=== PATIENT | male | born 1990 | race African-American/Black ===

== ENCOUNTER 2017-08-14 17:49 | Emergency (ER) | payer BC ==
[2017-08-14 18:04] VITALS: BP 139/94; PULSE 93; TEMP 98.7; BMI 30.3
[2017-08-14] MEDS ORDERED: SODIUM CHLORIDE 1,000 ML IV STA (18:15)
[2017-08-14] MEDS ORDERED: MAG HYDROX/AL HYDROX/SIMETH 30 ML UNIT-DOSE CUP PO ONE (18:15)
[2017-08-14] MEDS ORDERED: FAMOTIDINE 20 MG/50 ML IVPB 20 MG/50 ML MG IVPB ONE ×2 (18:15→18:20)
[2017-08-14] MEDS ORDERED: ONDANSETRON 4 MG/2 ML VIAL IVPUSH ONE (18:15)
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
--- NOTE | 2017-08-14 18:32 | PDOC ---
Attending Attestation - Resident Resident Name: Mikey Joe - ED Attending Attestation I have performed the following: I have examined & evaluated the patient, The case was reviewed & discussed with the resident, I agree w/resident's findings & plan, Exceptions are as noted - HPI HPI: 08/14/17 18:27 26-year-old male with past medical history of gastritis and alcohol abuse presents with left upper quadrant pain for several months. Patient reports that several months ago he had an endoscopy which demonstrated gastritis. He drinks liquor every day. He has not intoxicated now. States that the past 3 to symptoms are worsening but he has not been on any medications. He is recently moved [facility] [place] [facility]. Denies fevers or chills. States that occasionally the pain makes him feel dizzy but denies any chest pain or shortness of breath. Denies fevers or chills. - Physicial Exam PE: 08/14/17 18:32 GENERAL: Awake, alert, and fully oriented, in no acute distress. HEAD: No signs of trauma EYES: PERRLA, EOMI, sclera anicteric, conjunctiva clear ENT: Auricles normal inspection, hearing grossly normal, nares patent NECK: Normal ROM, supple LUNGS: Breath sounds equal, clear to auscultation bilaterally. No wheezes, and no crackles HEART: Regular rate and rhythm, normal S1 and S2, no murmurs, rubs or gallops ABDOMEN: +TTP LUQ. negative squires sign. Soft. No guarding, no rebound. No masses EXTREMITIES: Normal range of motion, no edema. No clubbing or cyanosis. No cords, erythema, or tenderness NEUROLOGICAL: Cranial nerves II through XII grossly intact. Normal speech, normal gait SKIN: Warm, Dry, normal turgor, no rashes or lesions noted. - Medical Decision Making 08/14/17 18:33 Vital Signs Temp Pulse Resp BP Pulse Ox 98.7 F 93 H 18 139/94 95 08/14/17 18:00 08/14/17 18:00 18 18:00 08/14/17 18:00 08/14/17 18:00 I suspect that this is likely alcohol gastritis. Pt advised on alcohol detox and will be given for 2 park care. Will obtain labs to r/o abdominal pathology such as pancreatitis. Labs, protonix, GERD medications. If workup unremarkable, will d/c with prescription of protonix and follow up with GI. Heart Score/ECG Review #1 ECG reviewed & interpreted by me at: 18:00 08/14/17 18:31 NSR 86, LVH, no std/concetta, TWI III, V3, QTC 397 msec
[2017-08-14 18:34] LABS: BASO % 0.7 % (0-2.0); EOS % 1.6 % (0-4.5); HEMATOCRIT 48.8 % (35.4-49); HEMOGLOBIN 16.9 GM/dL (11.7-16.9); LYMPH % 20.3 % (8-40); MCH 31.2 pg (25.7-33.7); MCHC 34.6 g/dl (32.0-35.9); MEAN PLT VOLUME 8.3 fl (7.5-11.1); MONO % 9.6 % (3.8-10.2); NEUT % 67.8 % (42.8-82.8); PLATELET COUNT 212 K/MM3 (134-434); RBC 5.43 M/mm3 (4.00-5.60); RDW 13.2 % (11.9-15.9); WHITE BLOOD COUNT 7.1 K/mm3 (4.0-10.0)
[2017-08-14 18:53] LABS: INR 1.04 (0.82-1.09); PROTHROMBIN TIME (PATIENT) 11.7 SEC (9.98-11.88)
[2017-08-14 19:06] LABS: ALBUMIN 4.3 g/dl (3.4-5.0); ANION GAP 5 (8-16); BILIRUBIN,TOTAL 0.7 mg/dL (0.2-1.0); BLOOD UREA NITROGEN 17 mg/dL (7-18); CALCIUM 9.4 mg/dL (8.5-10.1); CHLORIDE 104 mmol/L (98-107); CO2 29 mmol/L (21-32); CREATININE 1.2 mg/dL (0.7-1.3); GLUCOSE,RANDOM 88 mg/dL (74-106); LIPASE 142 U/L (73-393); MAGNESIUM 2.1 mg/dL (1.8-2.4); SGPT/ALT 47 U/L (12-78); SODIUM 138 mmol/L (136-145); TOT PROT 8.2 g/dl (6.4-8.2)
[2017-08-14 19:14] LABS: ALK PHOS 105 U/L (45-117); SGOT/AST 22 U/L (15-37)
--- NOTE | 2017-08-14 19:21 | PDOC ---
*Physical Exam - Vital Signs Last Vital Signs Temp Pulse Resp BP Pulse Ox 98.7 F 93 H 18 139/94 95 08/14/17 18:00 08/14/17 18:00 08/14/17 18:00 08/14/17 18:00 08/14/17 18:00 08/14/17 19:21 I resumed care from Dr. Joe at the beginning of my shift. Patient is a 26 YOM with h/o EtOH abuse and alcoholic gastritis, who presented with abdominal pain radiating to the chest similar to his prior gastritis episodes. Given GI medications, EKG without ischemic changes, pending CXR and labs now. Most likely he will be able to go home if repeat abdominal exam is benign. E-Rx written for home medications. - Physical Exam General Appearance: Yes: Nourished, Appropriately Dressed. No: Apparent Distress, Disheveled HEENT: positive: EOMI, Normal ENT Inspection, Normal Voice Respiratory/Chest: positive: Lungs Clear, Normal Breath Sounds. negative: Chest Tender, Respiratory Distress, Accessory Muscle Use Cardiovascular: positive: Regular Rhythm, Regular Rate, S1, S2. negative: Edema , JVD, Murmur Gastrointestinal/Abdominal: positive: Normal Bowel Sounds, Tender (minimal LUQ and epigastric), Soft, Protuberent (stated at baseline). negative: Pulsatile Mass, Mass ED Treatment Course - LABORATORY CBC & Chemistry Diagram: 08/14/17 18:27 08/14/17 18:27 - ADDITIONAL ORDERS Additional order review: Laboratory Results 08/14/17 08/14/17 18:27 18:27 PT with INR 11.70 INR 1.04 Sodium 138 Potassium 4.0 Chloride 104 Carbon Dioxide 29 Anion Gap 5 L BUN 17 Creatinine 1.2 Creat Clearance w eGFR > 60 Random Glucose 88 Calcium 9.4 Magnesium 2.1 Total Bilirubin 0.7 AST 22 ALT 47 Alkaline Phosphatase 105 Creatine Kinase 180 Troponin I < 0.02 Total Protein 8.2 Albumin 4.3 Lipase 142 08/14/17 18:27 RBC 5.43 MCV 90.0 MCHC 34.6 RDW 13.2 MPV 8.3 Neutrophils % 67.8 Lymphocytes % 20.3 Monocytes % 9.6 Eosinophils % 1.6 Basophils % 0.7 - Medications Given in the ED: ED Medications Discontinued Medications Generic Name Dose Route Start Last Admin Trade Name Freq PRN Reason Stop Dose Admin Al Hydroxide/Mg Hydroxide 30 ml 08/14/17 18:15 08/14/17 18:32 Mylanta Oral Suspension - PO 08/14/17 18:16 30 ml ONCE ONE Administration Famotidine/Sodium Chloride 20 mg in 50 mls @ 100 mls/hr 08/14/17 18:15 18:32 Pepcid 20 Mg Premixed Ivpb - IVPB 08/14/17 18:44 100 mls/hr ONCE ONE Administration Sodium Chloride 1,000 mls @ 1,000 mls/hr 08/14/17 18:15 08/14/17 18:32 Normal Saline - IV 08/14/17 19:14 1,000 mls/hr ASDIR STA Administration Ondansetron HCl 4 mg 08/14/17 18:15 08/14/17 18:32 Zofran Injection IVPUSH 08/14/17 18:16 4 mg ONCE ONE Administration Medical Decision Making - Medical Decision Making 08/14/17 20:07 Remaining laboratory work results negative. CXR negative. The patient's repeat abdominal exam is benign. Minimal LUQ and epigastric ttp stated much improved. The patient feels comfortable going home with E-Rx sent for Protonix. He will follow up in PCP clinic on Wednesday. Referral information given in discharge packet. Return precautions are discussed. *DC/Admit/Observation/Transfer Diagnosis at time of Disposition: Alcohol use Abdominal pain Qualifiers: Abdominal location: epigastric Qualified Code(s): R10.13 - Epigastric pain Gastritis Qualifiers: Gastritis type: unspecified gastritis Chronicity: unspecified Gastritis bleeding: presence of bleeding unspecified Qualified Code(s): K29.70 - Gastritis , unspecified, without bleeding - Discharge Dispostion Disposition: HOME Condition at time of disposition: Stable Admit: No - Prescriptions Prescriptions: Pantoprazole Sodium [Protonix] 40 mg PO DAILY #30 tablet.dr - Referrals Referrals: Chas Bridges MD [Staff Physician] - - Patient Instructions Printed Discharge Instructions: DI for Gastritis, DI for Alcohol Abuse Additional Instructions: Please return if you have any new, worsening or concerning symptoms. Please follow with your primary care physician. When you are ready to stop drinking, please call[address] at [phone] for detox. - Post Discharge Activity
--- NOTE | 2017-08-16 00:11 | EKG ---
Test Reason : Blood Pressure : / mmHG Vent. Rate : 086 BPM Atrial Rate : 086 BPM P-R Int : 134 ms QRS Dur : 088 ms QT Int : 332 ms P-R-T Axes : 046 -02 012 degrees QTc Int : 397 ms POOR DATA QUALITY, INTERPRETATION MAY BE ADVERSELY AFFECTED NORMAL SINUS RHYTHM POSSIBLE LEFT ATRIAL ENLARGEMENT LEFT VENTRICULAR HYPERTROPHY ABNORMAL ECG NO PREVIOUS ECGS AVAILABLE Confirmed by NAZIA DECKER, TREVON ([id number]) on 08/16/2017 12:10:54 AM Referred By: Confirmed By:TREVON MANDUJANO MD
== END 2017-08-14 20:27 | disposition home or self-care (01) ==
LOC: JER 17:49
PROC: 3E033GC Introduction of Other Therapeutic Substance into Peripheral Vein, Percutaneous Approach (ICD-10-PCS; principal; 2017-08-14)
PROC: 3E033GC Introduction of Other Therapeutic Substance into Peripheral Vein, Percutaneous Approach (ICD-10-PCS; 2017-08-14)
DX: K29.70 Gastritis, unspecified, without bleeding (principal); R10.12 Left upper quadrant pain; J45.990 Exercise induced bronchospasm; J44.9 Chronic obstructive pulmonary disease, unspecified; F10.10 Alcohol abuse, uncomplicated; Z87.828 Personal history of other (healed) physical injury and trauma
CPT/HCPCS: 36415; 71045-TC-FY; 80053; 82550; 82553; 83690; 83735; 84484; 85025; 85610; 93005; 93010; 96365; 96375; 99284-25; J7030

== ENCOUNTER 2017-08-31 15:33 | Inpatient (IN) | payer BC ==
[2017-08-31] MEDS ORDERED: ACETAMINOPHEN 1000 MG/100 ML VIAL (NON FORMULARY) IVPB ONE (16:38)
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
[2017-08-31] MEDS ORDERED: ONDANSETRON 4 MG/2 ML VIAL IVPUSH ONE (16:39)
--- NOTE | 2017-08-31 16:44 | PDOC ---
Attending Attestation - Physicial Exam PE: 08/31/17 18:27 GENERAL: Well developed, well nourished. Awake and alert. No acute distress. HEENT: Normocephalic, atraumatic. PERRLA, EOMI. No conjunctival pallor. Sclera are non- icteric. Moist mucous membranes. Oropharynx is clear. NECK: Supple. Full ROM. No JVD. Carotid pulses 2+ and symmetric, without bruits. No thyromegaly. No lymphadenopathy. CARDIOVASCULAR: +Tachycardic. No murmurs, rubs, or gallops. Distal pulses are 2+ and symmetric. PULMONARY: No evidence of respiratory distress. Lungs clear to auscultation bilaterally. No wheezing, rales or rhonchi. ABDOMINAL: Soft. Non-tender. Non-distended. No rebound or guarding. No organomegaly. Normoactive bowel sounds. MUSCULOSKELETAL Normal range of motion at all joints. No bony deformities or tenderness. No CVA tenderness. EXTREMITIES: No cyanosis. No clubbing. No edema. No calf tenderness. SKIN: Warm and dry. Normal capillary refill. No rashes. No jaundice. NEUROLOGICAL: Alert, awake, appropriate. Cranial nerves 2-12 intact. No deficits to light touch and temperature in face, upper extremities and lower extremities. No motor deficits in the in face, upper extremities and lower extremities. Normoreflexic in the upper and lower extremities. Normal speech. Toes are down- going bilaterally. Gait is normal without ataxia. PSYCHIATRIC: Cooperative. Good eye contact. Appropriate mood and affect. <Amairani Galvan - Last Filed: 08/31/17 18:27> - Resident Resident Name: JadSincere bo - ED Attending Attestation I have performed the following: I have examined & evaluated the patient, The case was reviewed & discussed with the resident, I agree w/resident's findings & plan, Exceptions are as noted - HPI HPI: 08/31/17 16:43 26 YO MALE P/W fever,rigors ,HARRISON,nausea and vomiting,bodyaches - Medical Decision Making 08/31/17 22:53 pt received IVF,,antiemetics,antibiotics and tylenol -neg influenza,neg cxr,neg ct scan -pt will be admitted to OBS, ??FUO <Aster Jensen - Last Filed: 08/31/17 22:56>
[2017-08-31] MEDS ORDERED: SODIUM CHLORIDE 1,000 ML IV SCH (16:45)
[2017-08-31] MEDS ORDERED: SODIUM CHLORIDE 1,000 ML IV STA (16:52)
[2017-08-31 17:05] LABS: BASO % 0.5 % (0-2.0); EOS % 0.3 % (0-4.5); HEMATOCRIT 48.3 % (35.4-49); HEMOGLOBIN 16.6 GM/dL (11.7-16.9); LYMPH % 5.9 % (8-40); MCH 31.3 pg (25.7-33.7); MCHC 34.5 g/dl (32.0-35.9); MEAN CELL VOLUME 90.8 fl (80-96); MEAN PLT VOLUME 8.5 fl (7.5-11.1); MONO % 8.5 % (3.8-10.2); NEUT % 84.8 % (42.8-82.8); PLATELET COUNT 207 K/MM3 (134-434); RBC 5.32 M/mm3 (4.00-5.60)
[2017-08-31] MEDS ORDERED: ACETAMINOPHEN INJECTION 100 ML IVPB ONE (17:06)
[2017-08-31] MEDS ORDERED: ONDANSETRON 4 MG/2 ML VIAL ONE (17:07)
[2017-08-31 17:23] LABS: ALBUMIN 4.4 g/dl (3.4-5.0); ANION GAP 9 (8-16); BILIRUBIN,TOTAL 0.8 mg/dL (0.2-1.0); CALCIUM 9.2 mg/dL (8.5-10.1); CHLORIDE 101 mmol/L (98-107); CO2 26 mmol/L (21-32); CREATININE 1.3 mg/dL (0.7-1.3); GLUCOSE,RANDOM 98 mg/dL (74-106); SODIUM 136 mmol/L (136-145)
[2017-08-31 17:38] LABS: VENOUS PC02 39.7 mmHg (38-52); VENOUS PH 7.43 (7.32-7.42); VENOUS PO2 68.9 mmHg (28-48)
[2017-08-31 17:42] LABS: ALK PHOS 91 U/L (45-117); BLOOD UREA NITROGEN 12 mg/dL (7-18); INR 1.11 (0.82-1.09); PROTHROMBIN TIME (PATIENT) 12.5 SEC (9.98-11.88); SGPT/ALT 49 U/L (12-78)
[2017-08-31 17:45] LABS: ACTIVATED PTT 28.8 SECONDS (26.9-34.4)
[2017-08-31 17:46] LABS: POTASSIUM 3.9 mmol/L (3.5-5.1); SGOT/AST 25 U/L (15-37)
[2017-08-31] MEDS ORDERED: VANCOMYCIN 1,250 MG in DEXTROSE 5%-WATER - 250 ML IVPB ONE ×2 (17:49→22:27)
[2017-08-31 21:56] LABS: URINE APPEARANCE CLEAR; URINE BILIRUBIN NEGATIVE (<2.0 mg/dL); URINE BLOOD NEGATIVE (NEGATIVE); URINE COLOR YELLOW; URINE GLUCOSE (UA) NEGATIVE (NEGATIVE); URINE KETONE 1+ (NEGATIVE); URINE LEUK ESTERASE NEGATIVE (NEGATIVE); URINE NITRITE NEGATIVE (NEGATIVE); URINE PROTEIN NEGATIVE (NEGATIVE)
[2017-08-31] MEDS ORDERED: PIPERACIL/TAZOB 3.375 GM 3.375 GM/50 ML PREMIX IVPB ONE (22:28)
[2017-08-31] MEDS ORDERED: ACETAMINOPHEN 325 MG TABLET (FP) ONE (22:42)
[2017-08-31] MEDS ORDERED: METOCLOPRAMIDE HCL INJECTION 10 MG/2 ML VIAL IVPUSH ONE (22:42)
[2017-08-31] MEDS ORDERED: METOCLOPRAMIDE HCL INJECTION 10 MG/2 ML VIAL ONE (22:42)
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
[2017-08-31] MEDS ORDERED: PIPERACILLIN/TAZOB 3.375 GM 3.375 GM/50 ML BAG IVPB ONE (23:17)
[2017-09-01] MEDS ORDERED: CEFTRIAXONE 2,000 MG in DEXTROSE 5%-WATER - 50 ML IVPB STA (00:04)
[2017-09-01] MEDS ORDERED: CEFTRIAXONE 2 GM/100 ML BAG IVPB ONE (00:16)
[2017-09-01] MEDS ORDERED: SODIUM CHLORIDE 1,000 ML IV SCH (00:30)
[2017-09-01] MEDS ORDERED: TETANUS AND DIPHTHERIA TOXOID 0.5 ML DISP.SYRIN IM ONE (00:35)
[2017-09-01] MEDS ORDERED: TETANUS IMMUNE GLOBULIN 250 UNITS DISP.SYRIN IM ONE (00:36)
[2017-09-01] MEDS ORDERED: ALBUTEROL SO4 18 GM HFA INHALER IH PRN (00:37)
[2017-09-01] MEDS ORDERED: ACETAMINOPHEN 325 MG TABLET (FP) PO ONE ×2 (00:38→11:56)
[2017-09-01] MEDS ORDERED: FOLIC ACID INJECTION - 1 MG, THIAMINE HCL 100 MG, MULTIVIT INJECTION ADULT 10 ML in SOD... IVPB ONE (00:39)
[2017-09-01] MEDS ORDERED: ONDANSETRON 4 MG/2 ML VIAL IVPUSH PRN (00:42)
[2017-09-01] MEDS ORDERED: chlordiazePOXIDE HCL 25 MG CAPSULE PO ONE (00:43)
[2017-09-01] MEDS ORDERED: chlordiazePOXIDE HCL 25 MG CAPSULE PO PRN (00:43)
[2017-09-01] MEDS ORDERED: OSELTAMIVIR PHOSPHATE 75 MG CAPSULE PO SCH (00:45)
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
[2017-09-01] MEDS ORDERED: chlordiazePOXIDE HCL 25 MG CAPSULE ONE (00:53)
[2017-09-01] MEDS ORDERED: ACETAMINOPHEN 325 MG TABLET (FP) ONE (02:57)
[2017-09-01] MEDS: SODIUM CHLORIDE 1,000 ML IV SCH (03:02)
[2017-09-01] MEDS: CLOTRIMAZOLE 1% CREAM 15 GM TUBE TP SCH ×3 (03:02→22:31)
[2017-09-01 03:42] VITALS: BMI 30.9
[2017-09-01] MEDS: chlordiazePOXIDE HCL 25 MG CAPSULE PO SCH ×4 (05:17→22:49)
[2017-09-01] MEDS ORDERED: PIPERACILLIN/TAZOBACTAM 3.375 GM VIAL IVPB ONE (06:38)
[2017-09-01] MEDS ORDERED: DEXTROSE 5%-WATER - 50 ML IVPB ONE (06:39)
[2017-09-01] MEDS ORDERED: PIPERACIL/TAZOB 3.375 GM 3.375 GM/50 ML PREMIX IVPB SCH (07:00)
[2017-09-01] MEDS ORDERED: PIPERACILLIN/TAZOB 3.375 GM 3.375 GM in DEXTROSE 5%-WATER - 50 ML IVPB ONE (07:00)
[2017-09-01 07:20] LABS: BASO % 0.4 % (0-2.0); EOS % 0.1 % (0-4.5); HEMATOCRIT 43.7 % (35.4-49); HEMOGLOBIN 15.5 GM/dL (11.7-16.9); LYMPH % 7.5 % (8-40); MCH 32.1 pg (25.7-33.7); MCHC 35.4 g/dl (32.0-35.9); MEAN CELL VOLUME 90.8 fl (80-96); MEAN PLT VOLUME 8.6 fl (7.5-11.1); MONO % 11.8 % (3.8-10.2); NEUT % 80.2 % (42.8-82.8); PLATELET COUNT 180 K/MM3 (134-434); RBC 4.81 M/mm3 (4.00-5.60); RDW 12.9 % (11.9-15.9); WHITE BLOOD COUNT 12.4 K/mm3 (4.0-10.0)
--- NOTE | 2017-09-01 07:40 | CONSULT ---
Consult Detox [facility] Reason for Current Admission/Consult: substance use Referred by:: veronica luong - History History of Present Illness: 26 yo m with h/o alcohol use diorder admitted with abdominal pain. Patient reports drinking 1 litre spirits daily and smoking 3 [id number], reports withdrwal sx when he doess not use, denies seizures, DTS, or or SI. requests drug rehab after he is medicallys tabel at [facility]. responding well to libirum detox Vital Signs - 24 hr 08/31/17 08/31/17 09/01/17 16:02 22:37 03:15 Temperature 102.1 F H 103.6 F H 100.0 F H Pulse Rate 113 H 86 Pulse Rate [ 94 H Right Radial] Respiratory 20 18 18 Rate Blood Pressure 132/83 144/92 Blood Pressure 143/84 [Left Arm] O2 Sat by Pulse 98 99 96 Oximetry (%) 09/01/17 09/01/17 09/01/17 04:29 08:29 14:00 Temperature 102.1 F H 99.0 F Pulse Rate 98 H Pulse Rate [ Right Radial] Respiratory 18 18 Rate Blood Pressure 139/79 Blood Pressure [Left Arm] O2 Sat by Pulse 96 Oximetry (%) febrile, tachycardic and hypertensive Laboratory Tests 08/31/17 08/31/17 08/31/17 16:45 16:45 16:45 WBC 13.0 H D RBC 5.32 Hgb 16.6 Hct 48.3 MCV 90.8 MCH 31.3 MCHC 34.5 RDW 13.0 Plt Count 207 MPV 8.5 Neutrophils % 84.8 H D Lymphocytes % 5.9 L D Monocytes % 8.5 Eosinophils % 0.3 D Basophils % 0.5 PT with INR 12.50 H INR 1.11 PTT (Actin FS) 28.8 VBG pH 7.43 H POC VBG pCO2 39.7 POC VBG pO2 68.9 H Mixed VBG HCO3 25.7 H Sodium Potassium Chloride Carbon Dioxide Anion Gap BUN Creatinine Creat Clearance w eGFR Random Glucose Lactic Acid Calcium Phosphorus Magnesium Total Bilirubin AST ALT Alkaline Phosphatase Troponin I C-Reactive Protein Total Protein Albumin Urine Color Urine Appearance Urine pH Ur Specific [place] Urine Protein Urine Glucose (UA) Urine Ketones Urine Blood Urine Nitrite Urine Bilirubin Urine Urobilinogen Ur Leukocyte Esterase Opiates Screen Methadone Screen Barbiturate Screen Phencyclidine Screen Ur Amphetamines Screen MDMA (Ecstasy) Screen Benzodiazepines Screen Cocaine Screen U Marijuana (THC) Screen 08/31/17 08/31/17 08/31/17 16:45 16:45 16:45 WBC RBC Hgb Hct MCV MCH MCHC RDW Plt Count MPV Neutrophils % Lymphocytes % Monocytes % Eosinophils % Basophils % PT with INR INR PTT (Actin FS) VBG pH POC VBG pCO2 POC VBG pO2 Mixed VBG HCO3 Sodium 136 Potassium 3.9 Chloride 101 Carbon Dioxide 26 Anion Gap 9 BUN 12 D Creatinine 1.3 Creat Clearance w eGFR > 60 Random Glucose 98 Lactic Acid 2.1 H Calcium 9.2 Phosphorus Magnesium Total Bilirubin 0.8 AST 25 ALT 49 Alkaline Phosphatase 91 Troponin I < 0.02 C-Reactive Protein Total Protein 8.0 Albumin 4.4 Urine Color Urine Appearance Urine pH Ur Specific [place] Urine Protein Urine Glucose (UA) Urine Ketones Urine Blood Urine Nitrite Urine Bilirubin Urine Urobilinogen Ur Leukocyte Esterase Opiates Screen Methadone Screen Barbiturate Screen Phencyclidine Screen Ur Amphetamines Screen MDMA (Ecstasy) Screen Benzodiazepines Screen Cocaine Screen U Marijuana (THC) Screen 08/31/17 08/31/17 08/31/17 19:12 21:45 23:09 WBC RBC Hgb Hct MCV MCH MCHC RDW Plt Count MPV Neutrophils % Lymphocytes % Monocytes % Eosinophils % Basophils % PT with INR INR PTT (Actin FS) VBG pH POC VBG pCO2 POC VBG pO2 Mixed VBG HCO3 Sodium Potassium Chloride Carbon Dioxide Anion Gap BUN Creatinine Creat Clearance w eGFR Random Glucose Lactic Acid 0.8 1.2 Calcium Phosphorus Magnesium Total Bilirubin AST ALT Alkaline Phosphatase Troponin I C-Reactive Protein Total Protein Albumin Urine Color Yellow Urine Appearance Clear Urine pH 6.0 Ur Specific [place] 1.024 Urine Protein Negative Urine Glucose (UA) Negative Urine Ketones 1+ H Urine Blood Negative Urine Nitrite Negative Urine Bilirubin Negative Urine Urobilinogen 2.0 Ur Leukocyte Esterase Negative Opiates Screen Methadone Screen Barbiturate Screen Phencyclidine Screen Ur Amphetamines Screen MDMA (Ecstasy) Screen Benzodiazepines Screen Cocaine Screen U Marijuana (THC) Screen 09/01/17 09/01/17 09/01/17 06:30 06:30 09:24 WBC 12.4 H RBC 4.81 Hgb 15.5 Hct 43.7 MCV 90.8 MCH 32.1 MCHC 35.4 RDW 12.9 Plt Count 180 MPV 8.6 Neutrophils % 80.2 Lymphocytes % 7.5 L D Monocytes % 11.8 H Eosinophils % 0.1 Basophils % 0.4 PT with INR INR PTT (Actin FS) VBG pH POC VBG pCO2 POC VBG pO2 Mixed VBG HCO3 Sodium 136 Potassium 3.3 L Chloride 100 Carbon Dioxide 27 Anion Gap 9 BUN 10 Creatinine 1.3 Creat Clearance w eGFR Random Glucose 85 Lactic Acid Calcium 8.3 L Phosphorus 3.5 Magnesium 1.6 L D Total Bilirubin AST ALT Alkaline Phosphatase Troponin I C-Reactive Protein 16.2 H Total Protein Albumin Urine Color Urine Appearance Urine pH Ur Specific [place] Urine Protein Urine Glucose (UA) Urine Ketones Urine Blood Urine Nitrite Urine Bilirubin Urine Urobilinogen Ur Leukocyte Esterase Opiates Screen Methadone Screen Barbiturate Screen Phencyclidine Screen Ur Amphetamines Screen MDMA (Ecstasy) Screen Benzodiazepines Screen Cocaine Screen U Marijuana (THC) Screen 09/01/17 09:40 WBC RBC Hgb Hct MCV MCH MCHC RDW Plt Count MPV Neutrophils % Lymphocytes % Monocytes % Eosinophils % Basophils % PT with INR INR PTT (Actin FS) VBG pH POC VBG pCO2 POC VBG pO2 Mixed VBG HCO3 Sodium Potassium Chloride Carbon Dioxide Anion Gap BUN Creatinine Creat Clearance w eGFR Random Glucose Lactic Acid Calcium Phosphorus Magnesium Total Bilirubin AST ALT Alkaline Phosphatase Troponin I C-Reactive Protein Total Protein Albumin Urine Color Urine Appearance Urine pH Ur Specific [place] Urine Protein Urine Glucose (UA) Urine Ketones Urine Blood Urine Nitrite Urine Bilirubin Urine Urobilinogen Ur Leukocyte Esterase Opiates Screen Negative Methadone Screen Negative Barbiturate Screen Negative Phencyclidine Screen Negative Ur Amphetamines Screen Negative MDMA (Ecstasy) Screen Negative Benzodiazepines Screen Negative Cocaine Screen Negative U Marijuana (THC) Screen Negative hypokalemai, hypomagnewsemia - History Source History Provided By: Patient, Medical Record, Caregiver Limitations to Obtaining History: No Limitations - Alcohol/Substance Use Hx Alcohol Use: Yes (2 pints of vodka daily) Hx Substance Use Treatment: No - Current Drug/Alcohol Use Alcohol Route: Oral Frequency: Daily Amount used: 1 litre daily Age of first use: 21 Date of Last Use: 08/30/17 - Significant Medical Findings: 26 yo m with severe alcohol use disorder, withdrawal sx present whne he does nto drink, first drink early am, tolerating libirum detox as ordered, reports nicotine dependence but does nto neeed a patch or gum, admitted with sepsis, gastritis now febrioe, tachycardic, and hyeprtensive w low k and MG. CIWA Score - CIWA Score Nausea/Vomitin Muscle Tremors: 1-None Visible, but [place] Anxiety: 1-Mildly Anxious Agitation: 1-Slight > Activity Paroxysmal Sweats: 1-Minimal Palms Moist Orientation: 0-Oriented Tacttile Disturbances: 1-Very Mild Itch/Numbness Auditory Disturbances: 0-None Visual Disturbances: 0-None Headache: 0-None Present CIWA-Ar Total Score: 8 Assessment Plan - Diagnosis (1) Hypokalemia Status: Acute (2) Hypomagnesemia Status: Acute (3) Alcohol dependence with uncomplicated withdrawal Status: Acute (4) Fever Status: Acute (5) Nicotine dependence Status: Acute (6) Abdominal pain Status: Acute Qualifiers: Abdominal location: epigastric Qualified Code(s): R10.13 - Epigastric pain (7) Gastritis Status: Acute Qualifiers: Gastritis type: unspecified gastritis Chronicity: unspecified Gastritis bleeding: presence of bleeding unspecified Qualified Code(s): K29.70 - Gastritis, unspecified, without bleeding - Plan Plan: chart , imaging, and labs reviewed. patient examined, hisotry taken. case discusssed with medical team caring for patient. 1. alcoho use disorder severe - fluids, vitamins, libirum detox as ordered, use prn libirum 2. low k and mg - supplement 3. abdo pain- as per priamry team 4. patient agrees to go to [facility] for alcohol rehab when medicallystable, the [facility] for insurance and if bed available. - Medication Detox Regimen/Protocol: Librium
[2017-09-01] MEDS ORDERED: ONDANSETRON *ODT* 4 MG TABLET SL PRN (07:42)
[2017-09-01] MEDS ORDERED: ZOLPIDEM TARTRATE 5 MG TABLET PO PRN ×2 (07:44→22:00)
[2017-09-01 08:01] LABS: ANION GAP 9 (8-16); BLOOD UREA NITROGEN 10 mg/dL (7-18); CALCIUM 8.3 mg/dL (8.5-10.1); CHLORIDE 100 mmol/L (98-107); CO2 27 mmol/L (21-32); CREATININE 1.3 mg/dL (0.7-1.3); GLUCOSE,RANDOM 85 mg/dL (74-106); MAGNESIUM 1.6 mg/dL (1.8-2.4); PHOSPHOROUS 3.5 mg/dL (2.5-4.9); POTASSIUM 3.3 mmol/L (3.5-5.1); SODIUM 136 mmol/L (136-145)
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
[2017-09-01] MEDS ORDERED: POTASSIUM PHOSPHATE 30 MM in SODIUM CHLORIDE 500 ML IVPB ONE (10:50)
[2017-09-01] MEDS: THIAMINE HCL 100 MG TABLET (FP) PO SCH (11:07)
[2017-09-01] MEDS: FOLIC ACID 1 MG TABLET (FP) PO SCH (11:07)
[2017-09-01] MEDS: PANTOPRAZOLE 40 MG TABLET (FP) PO SCH (11:07)
[2017-09-01 11:31] LABS: COCAINE, UR NEGATIVE ng/ml (CUTOFF=300); METHADONE, UR NEGATIVE ng/ml (CUTOFF=300); OPIATES, URI NEGATIVE ng/ml (CUTOFF=300); PHENCYCLIDINE,URINE NEGATIVE ng/ml (CUTOFF=25); URINE AMPHETAMINES NEGATIVE ng/ml (CUTOFF=500); URINE BARBITURATES NEGATIVE ng/ml (CUTOFF=200); URINE BENZODIAZEPINES NEGATIVE ng/ml (CUTOFF=200)
[2017-09-01] MEDS ORDERED: VANCOMYCIN 1,500 MG in DEXTROSE 5%-WATER - 250 ML IVPB SCH (13:15)
--- NOTE | 2017-09-01 13:19 | EKG ---
Test Reason : Blood Pressure : / mmHG Vent. Rate : 112 BPM Atrial Rate : 112 BPM P-R Int : 150 ms QRS Dur : 074 ms QT Int : 300 ms P-R-T Axes : 042 -03 002 degrees QTc Int : 409 ms SINUS TACHYCARDIA POSSIBLE LEFT ATRIAL ENLARGEMENT NONSPECIFIC T WAVE ABNORMALITY ABNORMAL ECG WHEN COMPARED WITH ECG OF 14-AUG-2017 18:01, NONSPECIFIC T WAVE ABNORMALITY NOW EVIDENT IN LATERAL LEADS Confirmed by ALEK DECKER, GUIDO ([id number]) on 09/01/2017 1:18:42 PM Referred By: Confirmed By:GUIDO GASTON MD
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
[2017-09-01] MEDS: PRENATAL VITAMINS W/ FOLIC ACID TABLET (FP) PO SCH (13:51)
--- NOTE | 2017-09-01 13:53 | PN ---
Teaching Attending Note Name of Resident: Diony Hernandez ATTENDING PHYSICIAN STATEMENT I saw and evaluated the patient. I reviewed the resident's note and discussed the case with the resident. I agree with the resident's findings and plan as documented. SUBJECTIVE: Patient complains of difficulty swallowing. OBJECTIVE: Vital Signs Period Temp Pulse Resp BP Sys/Polanco Pulse Ox Last 24 Hr 100.0 F-103.6 F 86-113 18-20 132-144/79-92 96-99 PHARYNX: Bilateral tonsillar exudates NECK: Bilateral anterior cervical adenopathy HEART: S1S2, tachycardic LUNGS: Clear ABDOMEN: Soft, non-tender, non-distended, normal BS EXTREMITIES: No edema Laboratory Results - last 24 hr 08/31/17 08/31/17 08/31/17 16:45 16:45 16:45 WBC 13.0 H D RBC 5.32 Hgb 16.6 Hct 48.3 MCV 90.8 MCH 31.3 MCHC 34.5 RDW 13.0 Plt Count 207 MPV 8.5 Neutrophils % 84.8 H D Lymphocytes % 5.9 L D Monocytes % 8.5 Eosinophils % 0.3 D Basophils % 0.5 PT with INR 12.50 H INR 1.11 PTT (Actin FS) 28.8 VBG pH 7.43 H POC VBG pCO2 39.7 POC VBG pO2 68.9 H Mixed VBG HCO3 25.7 H Sodium Potassium Chloride Carbon Dioxide Anion Gap BUN Creatinine Creat Clearance w eGFR Random Glucose Lactic Acid Calcium Phosphorus Magnesium Total Bilirubin AST ALT Alkaline Phosphatase Troponin I C-Reactive Protein Total Protein Albumin Urine Color Urine Appearance Urine pH Ur Specific [place] Urine Protein Urine Glucose (UA) Urine Ketones Urine Blood Urine Nitrite Urine Bilirubin Urine Urobilinogen Ur Leukocyte Esterase Opiates Screen Methadone Screen Barbiturate Screen Phencyclidine Screen Ur Amphetamines Screen MDMA (Ecstasy) Screen Benzodiazepines Screen Cocaine Screen U Marijuana (THC) Screen 08/31/17 08/31/17 08/31/17 16:45 16:45 16:45 WBC RBC Hgb Hct MCV MCH MCHC RDW Plt Count MPV Neutrophils % Lymphocytes % Monocytes % Eosinophils % Basophils % PT with INR INR PTT (Actin FS) VBG pH POC VBG pCO2 POC VBG pO2 Mixed VBG HCO3 Sodium 136 Potassium 3.9 Chloride 101 Carbon Dioxide 26 Anion Gap 9 BUN 12 D Creatinine 1.3 Creat Clearance w eGFR > 60 Random Glucose 98 Lactic Acid 2.1 H Calcium 9.2 Phosphorus Magnesium Total Bilirubin 0.8 AST 25 ALT 49 Alkaline Phosphatase 91 Troponin I < 0.02 C-Reactive Protein Total Protein 8.0 Albumin 4.4 Urine Color Urine Appearance Urine pH Ur Specific [place] Urine Protein Urine Glucose (UA) Urine Ketones Urine Blood Urine Nitrite Urine Bilirubin Urine Urobilinogen Ur Leukocyte Esterase Opiates Screen Methadone Screen Barbiturate Screen Phencyclidine Screen Ur Amphetamines Screen MDMA (Ecstasy) Screen Benzodiazepines Screen Cocaine Screen U Marijuana (THC) Screen 08/31/17 08/31/17 08/31/17 19:12 21:45 23:09 WBC RBC Hgb Hct MCV MCH MCHC RDW Plt Count MPV Neutrophils % Lymphocytes % Monocytes % Eosinophils % Basophils % PT with INR INR PTT (Actin FS) VBG pH POC VBG pCO2 POC VBG pO2 Mixed VBG HCO3 Sodium Potassium Chloride Carbon Dioxide Anion Gap BUN Creatinine Creat Clearance w eGFR Random Glucose Lactic Acid 0.8 1.2 Calcium Phosphorus Magnesium Total Bilirubin AST ALT Alkaline Phosphatase Troponin I C-Reactive Protein Total Protein Albumin Urine Color Yellow Urine Appearance Clear Urine pH 6.0 Ur Specific [place] 1.024 Urine Protein Negative Urine Glucose (UA) Negative Urine Ketones 1+ H Urine Blood Negative Urine Nitrite Negative Urine Bilirubin Negative Urine Urobilinogen 2.0 Ur Leukocyte Esterase Negative Opiates Screen Methadone Screen Barbiturate Screen Phencyclidine Screen Ur Amphetamines Screen MDMA (Ecstasy) Screen Benzodiazepines Screen Cocaine Screen U Marijuana (THC) Screen 09/01/17 09/01/17 09/01/17 06:30 06:30 09:24 WBC 12.4 H RBC 4.81 Hgb 15.5 Hct 43.7 MCV 90.8 MCH 32.1 MCHC 35.4 RDW 12.9 Plt Count 180 MPV 8.6 Neutrophils % 80.2 Lymphocytes % 7.5 L D Monocytes % 11.8 H Eosinophils % 0.1 Basophils % 0.4 PT with INR INR PTT (Actin FS) VBG pH POC VBG pCO2 POC VBG pO2 Mixed VBG HCO3 Sodium 136 Potassium 3.3 L Chloride 100 Carbon Dioxide 27 Anion Gap 9 BUN 10 Creatinine 1.3 Creat Clearance w eGFR Random Glucose 85 Lactic Acid Calcium 8.3 L Phosphorus 3.5 Magnesium 1.6 L D Total Bilirubin AST ALT Alkaline Phosphatase Troponin I C-Reactive Protein 16.2 H Total Protein Albumin Urine Color Urine Appearance Urine pH Ur Specific [place] Urine Protein Urine Glucose (UA) Urine Ketones Urine Blood Urine Nitrite Urine Bilirubin Urine Urobilinogen Ur Leukocyte Esterase Opiates Screen Methadone Screen Barbiturate Screen Phencyclidine Screen Ur Amphetamines Screen MDMA (Ecstasy) Screen Benzodiazepines Screen Cocaine Screen U Marijuana (THC) Screen 09/01/17 09:40 WBC RBC Hgb Hct MCV MCH MCHC RDW Plt Count MPV Neutrophils % Lymphocytes % Monocytes % Eosinophils % Basophils % PT with INR INR PTT (Actin FS) VBG pH POC VBG pCO2 POC VBG pO2 Mixed VBG HCO3 Sodium Potassium Chloride Carbon Dioxide Anion Gap BUN Creatinine Creat Clearance w eGFR Random Glucose Lactic Acid Calcium Phosphorus Magnesium Total Bilirubin AST ALT Alkaline Phosphatase Troponin I C-Reactive Protein Total Protein Albumin Urine Color Urine Appearance Urine pH Ur Specific [place] Urine Protein Urine Glucose (UA) Urine Ketones Urine Blood Urine Nitrite Urine Bilirubin Urine Urobilinogen Ur Leukocyte Esterase Opiates Screen Negative Methadone Screen Negative Barbiturate Screen Negative Phencyclidine Screen Negative Ur Amphetamines Screen Negative MDMA (Ecstasy) Screen Negative Benzodiazepines Screen Negative Cocaine Screen Negative U Marijuana (THC) Screen Negative Current Medications Generic Name Dose Route Start Last Admin Trade Name Freq PRN Reason Stop Dose Admin Albuterol Sulfate 2 puff 09/01/17 00:37 Ventolin Hfa Inhaler - IH Q4H PRN SHORT OF BREATH/WHEEZING Chlordiazepoxide HCl 50 mg 09/01/17 05:00 09/01/17 11:07 Librium - PO 09/01/17 23:01 50 mg [id number] MAEGAN Administration Chlordiazepoxide HCl 25 mg 09/02/17 05:00 Librium - PO 09/02/17 23:01 [id number] MAEGAN Chlordiazepoxide HCl 15 mg 09/03/17 05:00 Librium - PO 09/03/17 23:01 [id number] MAEGAN Chlordiazepoxide HCl 25 mg 09/01/17 00:43 Librium - PO 09/04/17 00:42 Q4H PRN WITHDRAWAL(CONT SUBST) Clotrimazole 1 applic 09/01/17 00:45 09/01/17 13:51 Lotrimin 1% Cream - TP Not Given BID MAEGAN Folic Acid 1 mg 09/01/17 10:00 09/01/17 11:07 Folic Acid - PO 1 mg DAILY MAEGAN Administration Sodium Chloride 1,000 mls @ 150 mls/hr 08/31/17 16:45 08/31/17 16:55 Normal Saline - IV 150 mls/hr ASDIR MAEGAN Administration Sodium Chloride 1,000 mls @ 125 mls/hr 09/01/17 00:38 09/01/17 03:02 Normal Saline - IV Not Given ASDIR MAEGAN Potassium Phosphate 30 mm/ 510 mls @ 63.75 mls/hr 09/01/17 10:50 09/01/17 11: 15 Sodium Chloride IVPB 09/01/17 18:49 63.75 mls/hr ONCE ONE Administration Vancomycin HCl 1,500 mg/ 500 mls @ 250 mls/hr 09/01/17 13:15 Dextrose IVPB BID [facility] Protocol Ondansetron HCl 8 mg 09/01/17 07:42 Zofran Odt - SL Q6H PRN NAUSEA AND/OR VOMITING Pantoprazole Sodium 40 mg 09/01/17 10:00 09/01/17 11:07 Protonix - PO 40 mg DAILY MAEGAN Administration Piperacillin/Tazobactam/Dextrose 3.375 gm 09/01/17 07:00 Zosyn 3.375gm Ivpb (Premix) IVPB Q8H-IV MAEGAN Multivit/Folic Acid/Iron 1 tab 09/01/17 10:00 09/01/17 13:51 Vitamins (Sjr) - PO 1 tab DAILY MAEGAN Administration Thiamine HCl 100 mg 09/01/17 10:00 09/01/17 11:07 Vitamin B1 - PO 100 mg DAILY MAEGAN Administration Thiamine HCl 100 mg 09/01/17 22:00 Vitamin B1 - PO HS MAEGAN Zolpidem Tartrate 10 mg 09/01/17 22:00 Ambien - PO HS PRN INSOMNIA ASSESSMENT AND PLAN: This is a 26 year old man with a history of alcohol abuse, gastritis, asthma, migraines, hiatal hernia who presented to the ED with headache, myalgias, abdominal pain, nausea, vomiting. 1. Sepsis secondary to pharyngitis/tonsillitis - On Vancomycin - Received Zosyn in ED - Throat culture pending - gram stain (+) gram pos cocci in clusters, gram neg bacilli, gram pos bacilli 2. Hypokalemia - Replete potassium 3. Hypomagnesemia - Supplement magnesium 4. Alcohol withdrawal - Continue Librium detox 5. Continuous alcohol dependence - Continue Thiamine, folic acid, multivitamin 6. Gastritis - Continue Protonix 7. Asthma - Stable - Continue albuterol as needed 8. Tinea corporis - Continue Lotrimin cream 9. Right arm wound - No evidence of infection
[2017-09-01] MEDS ORDERED: VANCOMYCIN 1,500 MG in DEXTROSE 5%-WATER - 500 ML IVPB SCH (20:00)
[2017-09-01] MEDS ORDERED: PT OWN MED DRAWER 7, Y5N ONE (20:54)
[2017-09-01] MEDS: POTASSIUM CHLORIDE TABS 20 MEQ TABLET.ER (FP) PO SCH (21:10)
[2017-09-01] MEDS: MAGNESIUM OXIDE 400 MG TABLET (FP) PO SCH (21:10)
[2017-09-01] MEDS: VANCOMYCIN 1,500 MG in DEXTROSE 5%-WATER - 500 ML IVPB SCH (21:24)
[2017-09-01] MEDS ORDERED: THIAMINE HCL 100 MG TABLET (FP) PO SCH (22:00)
[2017-09-02 05:37] VITALS: BP 134/70; PULSE 76; TEMP 98.6
[2017-09-02] MEDS: SODIUM CHLORIDE 1,000 ML IV SCH (05:43)
[2017-09-02] MEDS: chlordiazePOXIDE HCL 25 MG CAPSULE PO SCH ×2 (05:44→10:07)
[2017-09-02] MEDS ORDERED: PT OWN MED DRAWER 7, Y5N ONE (06:13)
[2017-09-02 07:07] LABS: BASO % 0.6 % (0-2.0); EOS % 1.9 % (0-4.5); HEMATOCRIT 43.8 % (35.4-49); HEMOGLOBIN 14.7 GM/dL (11.7-16.9); LYMPH % 13.7 % (8-40); MCH 30.6 pg (25.7-33.7); MCHC 33.6 g/dl (32.0-35.9); MEAN CELL VOLUME 91.1 fl (80-96); MEAN PLT VOLUME 8.2 fl (7.5-11.1); MONO % 10.6 % (3.8-10.2); NEUT % 73.2 % (42.8-82.8); PLATELET COUNT 168 K/MM3 (134-434); RBC 4.81 M/mm3 (4.00-5.60); RDW 13.2 % (11.9-15.9); WHITE BLOOD COUNT 9.3 K/mm3 (4.0-10.0)
[2017-09-02 07:49] LABS: ALBUMIN 3.2 g/dl (3.4-5.0); ANION GAP 11 (8-16); BLOOD UREA NITROGEN 5 mg/dL (7-18); CALCIUM 8.5 mg/dL (8.5-10.1); CHLORIDE 102 mmol/L (98-107); CO2 27 mmol/L (21-32); CREATININE 1.1 mg/dL (0.7-1.3); GLUCOSE,RANDOM 79 mg/dL (74-106); POTASSIUM 3.6 mmol/L (3.5-5.1); SGOT/AST 16 U/L (15-37); SGPT/ALT 28 U/L (12-78); SODIUM 140 mmol/L (136-145)
[2017-09-02 07:51] LABS: ALK PHOS 66 U/L (45-117); BILIRUBIN,TOTAL 0.7 mg/dL (0.2-1.0); TOT PROT 6.4 g/dl (6.4-8.2)
--- NOTE | 2017-09-02 09:30 | PN ---
Progress Note, Physician Chief Complaint: ID Improved today Temp down and throat better - Current Medication List Current Medications: Active Medications Albuterol Sulfate (Ventolin Hfa Inhaler -) 2 puff IH Q4H PRN PRN Reason: SHORT OF BREATH/WHEEZING Chlordiazepoxide HCl (Librium -) 25 mg PO [id number] [facility] Stop: 09/02/17 23:01 Last Admin: 09/02/17 05:44 Dose: 25 mg Chlordiazepoxide HCl (Librium -) 15 mg PO [id number] [facility] Stop: 09/03/17 23:01 Chlordiazepoxide HCl (Librium -) 25 mg PO Q4H PRN PRN Reason: WITHDRAWAL(CONT SUBST) Stop: 09/04/17 00:42 Clotrimazole (Lotrimin 1% Cream -) 1 applic TP BID [facility] Last Admin: 09/01/17 22:31 Dose: Not Given Folic Acid (Folic Acid -) 1 mg PO DAILY [facility] Last Admin: 09/01/17 11:07 Dose: 1 mg Sodium Chloride (Normal Saline -) 1,000 mls @ 125 mls/hr IV ASDIR [facility] Last Admin: 09/02/17 05:43 Dose: 125 mls/hr Vancomycin HCl 1,500 mg/ (Dextrose) 500 mls @ 250 mls/hr IVPB BID MAEGAN PRN Reason: Protocol Last Admin: 09/01/17 21:24 Dose: 250 mls/hr Magnesium Oxide (Mag-Ox -) 400 mg PO BID [facility] Last Admin: 09/01/17 21:10 Dose: 400 mg Ondansetron HCl (Zofran Odt -) 8 mg SL Q6H PRN PRN Reason: NAUSEA AND/OR VOMITING Pantoprazole Sodium (Protonix -) 40 mg PO DAILY [facility] Last Admin: 09/01/17 11:07 Dose: 40 mg Piperacillin/Tazobactam/Dextrose (Zosyn 3.375gm Ivpb (Premix)) 3.375 gm IVPB Q8H-IV MAEGAN Potassium Chloride (K-Dur -) 20 meq PO BID [facility] Last Admin: 09/01/17 21:10 Dose: 20 meq Multivit/Folic Acid/Iron ( Vitamins (Sjr) -) 1 tab PO DAILY [facility] Last Admin: 09/01/17 13:51 Dose: 1 tab Thiamine HCl (Vitamin B1 -) 100 mg PO DAILY [facility] Last Admin: 09/01/17 11:07 Dose: 100 mg Thiamine HCl (Vitamin B1 -) 100 mg PO HS [facility] Last Admin: 09/01/17 21:10 Dose: 100 mg Zolpidem Tartrate (Ambien -) 10 mg PO HS PRN PRN Reason: INSOMNIA - Objective Vital Signs: Vital Signs Temperature 98.6 F 09/02/17 05:36 Pulse Rate 76 09/02/17 05:36 Respiratory Rate 20 09/02/17 05:36 Blood Pressure 134/70 09/02/17 05:36 O2 Sat by Pulse Oximetry (%) 97 09/01/17 23:13 Constitutional: Yes: No Distress HENT: Yes: Pharyngeal Erythema, Tonsillar Exudate Cardiovascular: Yes: S1, S2 Respiratory: Yes: WNL, Regular, CTA Bilaterally Gastrointestinal: Yes: Soft. No: Tenderness Labs: CBC, BMP 09/02/17 06:40 09/02/17 06:40 INR, PTT INR 1.11 (0.82-1.09) 08/31/17 16:45 Problem List - Problems (1) Fever Code(s): R50.9 - FEVER, UNSPECIFIED (2) Exudative pharyngitis Code(s): J02.9 - ACUTE PHARYNGITIS, UNSPECIFIED (3) Wound of right upper extremity Code(s): S41.101A - UNSPECIFIED OPEN WOUND OF RIGHT UPPER ARM, INITIAL ENCOUNTER Assessment/Plan Microbiology 08/31/17 16:45 Blood - Peripheral Venous Blood Culture - Preliminary NO GROWTH OBTAINED AFTER 24 HOURS, INCUBATION TO CONTINUE FOR 4 DAYS. 08/31/17 16:45 Blood - Peripheral Venous Blood Culture - Preliminary NO GROWTH OBTAINED AFTER 24 HOURS, INCUBATION TO CONTINUE FOR 4 DAYS. Laboratory Tests 08/31/17 09/01/17 09/02/17 23:16 09:24 06:40 WBC 9.3 Hgb 14.7 Plt Count 168 BUN Creatinine HIV 1&2 Ag/Ab, 4th Gen Non reactive HIV 1&2 Antibody Screen Negative HIV P24 Antigen Negative 09/02/17 06:40 WBC Hgb Plt Count BUN 5 L D Creatinine 1.1 HIV 1&2 Ag/Ab, 4th Gen HIV 1&2 Antibody Screen HIV P24 Antigen Assessment Strep throat suspected Plan Discharge on Keflex 500mg tid 10days Rossi DECKER
[2017-09-02] MEDS: THIAMINE HCL 100 MG TABLET (FP) PO SCH (10:06)
[2017-09-02] MEDS: MAGNESIUM OXIDE 400 MG TABLET (FP) PO SCH (10:06)
[2017-09-02] MEDS: PRENATAL VITAMINS W/ FOLIC ACID TABLET (FP) PO SCH (10:07)
[2017-09-02] MEDS: POTASSIUM CHLORIDE TABS 20 MEQ TABLET.ER (FP) PO SCH (10:07)
[2017-09-02] MEDS: VANCOMYCIN 1,500 MG in DEXTROSE 5%-WATER - 500 ML IVPB SCH (10:07)
[2017-09-02] MEDS: FOLIC ACID 1 MG TABLET (FP) PO SCH (10:07)
[2017-09-02] MEDS: PANTOPRAZOLE 40 MG TABLET (FP) PO SCH (10:07)
[2017-09-02] MEDS: CLOTRIMAZOLE 1% CREAM 15 GM TUBE TP SCH (10:07)
--- NOTE | 2017-09-02 12:30 | PN ---
Teaching Attending Note Name of Resident: Diony Hernandez ATTENDING PHYSICIAN STATEMENT I saw and evaluated the patient. I reviewed the resident's note and discussed the case with the resident. I agree with the resident's findings and plan as documented. SUBJECTIVE: Patient OBJECTIVE: Vital Signs Period Temp Pulse Resp BP Sys/Polanco Pulse Ox Last 24 Hr 98.6 F-99.9 F 73-78 18-20 120-151/68-76 96-97 PHARYNX: Decreased tonsillar exudates NECK: Decreased adenopathy HEART: S1S2, RRR LUNGS: Clear ABDOMEN :Soft, non-tender, non-distended, normal BS EXTREMITIES: No edema Laboratory Results - last 24 hr 08/31/17 09/01/17 09/02/17 23:16 09:24 06:40 WBC 9.3 RBC 4.81 Hgb 14.7 Hct 43.8 MCV 91.1 MCH 30.6 MCHC 33.6 RDW 13.2 Plt Count 168 MPV 8.2 Neutrophils % 73.2 Lymphocytes % 13.7 D Monocytes % 10.6 H Eosinophils % 1.9 D Basophils % 0.6 Sodium Potassium Chloride Carbon Dioxide Anion Gap BUN Creatinine Creat Clearance w eGFR Random Glucose Calcium Total Bilirubin AST ALT Alkaline Phosphatase Total Protein Albumin HIV 1&2 Ag/Ab, 4th Gen Non reactive HIV 1&2 Antibody Screen Negative HIV P24 Antigen Negative 09/02/17 06:40 WBC RBC Hgb Hct MCV MCH MCHC RDW Plt Count MPV Neutrophils % Lymphocytes % Monocytes % Eosinophils % Basophils % Sodium 140 Potassium 3.6 Chloride 102 Carbon Dioxide 27 Anion Gap 11 BUN 5 L D Creatinine 1.1 Creat Clearance w eGFR > 60 Random Glucose 79 Calcium 8.5 Total Bilirubin 0.7 AST 16 D ALT 28 D Alkaline Phosphatase 66 D Total Protein 6.4 Albumin 3.2 L D HIV 1&2 Ag/Ab, 4th Gen HIV 1&2 Antibody Screen HIV P24 Antigen Current Medications Generic Name Dose Route Start Last Admin Trade Name Freq PRN Reason Stop Dose Admin Albuterol Sulfate 2 puff 09/01/17 00:37 Ventolin Hfa Inhaler - IH Q4H PRN SHORT OF BREATH/WHEEZING Chlordiazepoxide HCl 15 mg 09/02/17 17:00 Librium - PO 09/02/17 23:01 [id number] MAEGAN Clotrimazole 1 applic 09/01/17 00:45 09/02/17 10:07 Lotrimin 1% Cream - TP 1 applic BID MAEGAN Administration Folic Acid 1 mg 09/01/17 10:00 09/02/17 10:07 Folic Acid - PO 1 mg DAILY MAEGAN Administration Sodium Chloride 1,000 mls @ 125 mls/hr 09/01/17 00:38 09/02/17 05:43 Normal Saline - IV 125 mls/hr ASDIR MAEGAN Administration Vancomycin HCl 1,500 mg/ 500 mls @ 250 mls/hr 09/01/17 13:15 09/02/17 10:07 Dextrose IVPB 250 mls/hr BID MAEGAN Administration Protocol Magnesium Oxide 400 mg 09/01/17 22:00 09/02/17 10:06 Mag-Ox - PO 400 mg BID MAEGAN Administration Ondansetron HCl 8 mg 09/01/17 07:42 Zofran Odt - SL Q6H PRN NAUSEA AND/OR VOMITING Pantoprazole Sodium 40 mg 09/01/17 10:00 09/02/17 10:07 Protonix - PO 40 mg DAILY MAEGAN Administration Piperacillin/Tazobactam/Dextrose 3.375 gm 09/01/17 07:00 Zosyn 3.375gm Ivpb (Premix) IVPB Q8H-IV MAEGAN Multivit/Folic Acid/Iron 1 tab 09/01/17 10:00 09/02/17 10:07 Vitamins (Sjr) - PO 1 tab DAILY MAEGAN Administration Thiamine HCl 100 mg 09/01/17 10:00 09/02/17 10:06 Vitamin B1 - PO 100 mg DAILY MAEGAN Administration Thiamine HCl 100 mg 09/01/17 22:00 09/01/17 21:10 Vitamin B1 - PO 100 mg HS MAEGAN Administration Zolpidem Tartrate 10 mg 09/01/17 22:00 Ambien - PO HS PRN INSOMNIA ASSESSMENT AND PLAN: This is a 26 year old man with a history of alcohol abuse, gastritis, asthma, migraines, hiatal hernia who presented to the ED with headache, myalgias, abdominal pain, nausea, vomiting. 1. Sepsis secondary to Strep pharyngitis/tonsillitis - Fever, leukocytosis, tachycardia improved - On Vancomycin and received Zosyn in ED - change to Keflex x 10 days - Throat culture pending growing group A Strep 2. Hypokalemia - Improved 3. Hypomagnesemia - On MagOx 4. Alcohol withdrawal, uncomplicated - Continue Librium detox 5. Continuous alcohol dependence - Continue Thiamine, folic acid, multivitamin 6. Gastritis - Continue Protonix 7. Asthma - Stable - Continue albuterol as needed 8. Tinea corporis - Continue Lotrimin cream 9. Right arm wound - No evidence of infection
--- NOTE | 2017-09-02 13:08 | PN ---
S Progress Note (SOAP) Subjective: no complaints patient wishes to be discharged todayand attend intensive outpatient clinic at [facility] Objective: 09/02/17 13:07 Vital Signs - 24 hr 09/01/17 09/01/17 09/01/17 14:00 16:00 16:30 Temperature 99.0 F 98.9 F Pulse Rate 76 Respiratory 18 20 Rate Blood Pressure 120/68 O2 Sat by Pulse 96 Oximetry (%) 09/01/17 09/01/17 09/02/17 20:00 23:13 00:00 Temperature 99.1 F 99.9 F H Pulse Rate 73 78 Respiratory 20 20 Rate Blood Pressure 151/76 137/76 O2 Sat by Pulse 97 Oximetry (%) 09/02/17 05:36 Temperature 98.6 F Pulse Rate 76 Respiratory 20 Rate Blood Pressure 134/70 O2 Sat by Pulse Oximetry (%) Laboratory Results - last 24 hr 08/31/17 09/01/17 09/02/17 23:16 09:24 06:40 WBC 9.3 RBC 4.81 Hgb 14.7 Hct 43.8 MCV 91.1 MCH 30.6 MCHC 33.6 RDW 13.2 Plt Count 168 MPV 8.2 Neutrophils % 73.2 Lymphocytes % 13.7 D Monocytes % 10.6 H Eosinophils % 1.9 D Basophils % 0.6 Sodium Potassium Chloride Carbon Dioxide Anion Gap BUN Creatinine Creat Clearance w eGFR Random Glucose Calcium Total Bilirubin AST ALT Alkaline Phosphatase Total Protein Albumin HIV 1&2 Ag/Ab, 4th Gen Non reactive HIV 1&2 Antibody Screen Negative HIV P24 Antigen Negative 09/02/17 06:40 WBC RBC Hgb Hct MCV MCH MCHC RDW Plt Count MPV Neutrophils % Lymphocytes % Monocytes % Eosinophils % Basophils % Sodium 140 Potassium 3.6 Chloride 102 Carbon Dioxide 27 Anion Gap 11 BUN 5 L D Creatinine 1.1 Creat Clearance w eGFR > 60 Random Glucose 79 Calcium 8.5 Total Bilirubin 0.7 AST 16 D ALT 28 D Alkaline Phosphatase 66 D Total Protein 6.4 Albumin 3.2 L D HIV 1&2 Ag/Ab, 4th Gen HIV 1&2 Antibody Screen HIV P24 Antigen hypoalbuminemia, nad, a and o x3 Assessment: 09/02/17 13:07libirum detox accelerated, if mediallys table may be d/c hometoday with follow up at [facility] does not need to stay for last dose 09/02/17 13:08 discussed with medical paul/resident
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
[2017-09-02] MEDS ORDERED: chlordiazePOXIDE 5 MG CAPSULE PO SCH (17:00)
[2017-09-03] MEDS ORDERED: chlordiazePOXIDE 5 MG CAPSULE PO SCH (05:00)
== END 2017-09-02 17:18 | disposition home or self-care (01) | DRG 720 ==
LOC: JER 15:33 → UNDOADMIN 23:00 → JERBED 23:00 → INTOOBSV 09-01 01:44 → JERBED 09-01 01:44 → OBSVTOIN 09-01 01:44 → J6S 09-01 02:50 → UNDOADMIN 09-01 23:00
PROVIDERS: ADMIT Internal Medicine; ATTEND Internal Medicine
PROC: HZ2ZZZZ Detoxification Services for Substance Abuse Treatment (ICD-10-PCS; principal; 2017-09-01)
DX: A41.9 Sepsis, unspecified organism (principal); K29.70 Gastritis, unspecified, without bleeding; J45.909 Unspecified asthma, uncomplicated; B35.4 Tinea corporis; F10.230 Alcohol dependence with withdrawal, uncomplicated; F17.210 Nicotine dependence, cigarettes, uncomplicated; E87.6 Hypokalemia; E83.42 Hypomagnesemia; R10.13 Epigastric pain; J02.0 Streptococcal pharyngitis; R50.9 Fever, unspecified; K29.20 Alcoholic gastritis without bleeding; K76.0 Fatty (change of) liver, not elsewhere classified; D72.829 Elevated white blood cell count, unspecified; E88.09 Other disorders of plasma-protein metabolism, not elsewhere classified
CPT/HCPCS: 36415; 71046-TC-FY; 74018-TC-FY; 74177-TC; 80048; 80053; 80307; 81003; 82803; 83605; 83735; 84100; 84484; 85025; 85610; 85730; 86140; 87040; 87070; 87086; 87186; 87205; 87389; 87804; 93005; 93010; 99285-25; J0131; J1670; J7030

== ENCOUNTER 2020-04-22 08:19 | Inpatient (IN) | payer OTHER ==
[2020-04-22 09:00] VITALS: BMI 29.2
[2020-04-22] MEDS ORDERED: MAGNESIUM HYDROX 2400MG/30ML ORAL SUSPENSION 30 ML CUP PO PRN (09:17)
[2020-04-22] MEDS ORDERED: BISMUTH SUBSALICYLATE 524 MG/30 ML UD PO PRN (09:17)
[2020-04-22] MEDS ORDERED: MENTHOL/PHENOL 1 EACH UD MM PRN (09:17)
[2020-04-22] MEDS ORDERED: ACETAMINOPHEN 325 MG TABLET (FP) PO PRN (09:17)
[2020-04-22] MEDS ORDERED: NICOTINE POLACRILEX 2 MG GUM BUC PRN (09:17)
[2020-04-22] MEDS ORDERED: MAGNESIUM CITRATE 300 ML BOTTLE PO PRN (09:17)
[2020-04-22] MEDS ORDERED: chlordiazePOXIDE HCL 25 MG CAPSULE PO PRN (09:17)
[2020-04-22] MEDS ORDERED: ONDANSETRON *ODT* 4 MG TABLET SL PRN (09:17)
[2020-04-22] MEDS ORDERED: IBUPROFEN 400 MG TABLET (FP) PO PRN (09:17)
[2020-04-22] MEDS ORDERED: ALBUTEROL SO4 HFA INHALER IH PRN (09:19)
[2020-04-22] MEDS ORDERED: hydrOXYzine PAMOATE 25 MG CAPSULE (FP) PO SCH (10:00)
[2020-04-22] MEDS: PRENATAL VITAMINS W/ FOLIC ACID TABLET (FP) PO SCH (10:02)
[2020-04-22] MEDS: chlordiazePOXIDE HCL 25 MG CAPSULE PO SCH ×3 (10:02→22:00)
[2020-04-22] MEDS: MAG HYDROX/AL HYDROX/SIMETH 30 ML UNIT-DOSE CUP PO PRN ×2 (10:02→17:06)
[2020-04-22] MEDS: NICOTINE 7 MG/24 HOURS TOPICAL PATCH TD SCH (10:02)
[2020-04-22] MEDS ORDERED: hydrOXYzine PAMOATE 25 MG CAPSULE (FP) PO PRN (10:52)
[2020-04-22] MEDS: ACETAMINOPHEN 325 MG TABLET (FP) PO PRN (17:06)
[2020-04-22] MEDS: METHOCARBAMOL 500 MG TABLET PO PRN (21:57)
[2020-04-22] MEDS: THIAMINE HCL 100 MG TABLET (FP) PO SCH (21:57)
[2020-04-22] MEDS: MELATONIN 5 MG TABLETS PO SCH (21:57)
[2020-04-23] MEDS: chlordiazePOXIDE HCL 25 MG CAPSULE PO SCH ×4 (05:44→22:00)
[2020-04-23] MEDS: ACETAMINOPHEN 325 MG TABLET (FP) PO PRN ×2 (05:46→13:56)
[2020-04-23] MEDS: MAG HYDROX/AL HYDROX/SIMETH 30 ML UNIT-DOSE CUP PO PRN ×2 (05:47→22:02)
[2020-04-23] MEDS ORDERED: PANTOPRAZOLE 40 MG TABLET PO SCH (10:00)
[2020-04-23] MEDS: PRENATAL VITAMINS W/ FOLIC ACID TABLET (FP) PO SCH (10:20)
[2020-04-23] MEDS: NICOTINE 7 MG/24 HOURS TOPICAL PATCH TD SCH (10:20)
[2020-04-23] MEDS: METHOCARBAMOL 500 MG TABLET PO PRN (16:52)
[2020-04-23] MEDS: THIAMINE HCL 100 MG TABLET (FP) PO SCH (22:00)
[2020-04-23] MEDS: MELATONIN 5 MG TABLETS PO SCH (22:00)
[2020-04-24] MEDS ORDERED: chlordiazePOXIDE HCL 25 MG CAPSULE PO SCH (05:00)
[2020-04-24] MEDS: MAG HYDROX/AL HYDROX/SIMETH 30 ML UNIT-DOSE CUP PO PRN (05:12)
[2020-04-24] MEDS: ACETAMINOPHEN 325 MG TABLET (FP) PO PRN (05:13)
[2020-04-24 06:08] VITALS: TEMP 97.3
[2020-04-24] MEDS ORDERED: MASKS NR ONE (06:35)
[2020-04-24 09:33] VITALS: BP 134/94; PULSE 75
[2020-04-25] MEDS ORDERED: chlordiazePOXIDE HCL 10 MG CAPSULE PO PRN
[2020-04-25] MEDS ORDERED: chlordiazePOXIDE HCL 10 MG CAPSULE PO SCH (05:00)
[2020-04-26] MEDS ORDERED: chlordiazePOXIDE HCL 10 MG CAPSULE PO SCH (05:00)
[2020-04-27] MEDS ORDERED: chlordiazePOXIDE HCL 10 MG CAPSULE PO ONE (05:00)
== END 2020-04-24 09:20 | disposition left against medical advice (07) | DRG 770 ==
LOC: YASAS 08:19 → Y6N 09:03
PROVIDERS: ADMIT Allergy & Immunology; ATTEND Allergy & Immunology
PROC: HZ2ZZZZ Detoxification Services for Substance Abuse Treatment (ICD-10-PCS; principal; 2020-04-22)
DX: F10.230 Alcohol dependence with withdrawal, uncomplicated (principal); F10.229 Alcohol dependence with intoxication, unspecified; F17.210 Nicotine dependence, cigarettes, uncomplicated; K29.20 Alcoholic gastritis without bleeding; J45.909 Unspecified asthma, uncomplicated
CPT/HCPCS: 36415; 86780; 93005; 93010; Q0162